=== PATIENT | male | born 1965 | race Caucasian/White ===

== ENCOUNTER 2017-04-20 14:56 | Emergency (ER) | payer MEDICAID ==
[~2017-04-20] VITALS: Ht 170.2 cm; Wt 99.8 kg
[2017-04-20] MEDS ORDERED: LEVO175T7 PO (15:17)
[2017-04-20] MEDS ORDERED: LEVO150T8 PO (15:17)
[2017-04-20] MEDS ORDERED: HUM10VIA5 SQ ×2 (15:17)
[2017-04-20] MEDS ORDERED: GABA-532 PO (15:17)
--- NOTE | 2017-04-20 15:20 | NUR ---
PT PROVIDED SNACK PER MD ORDER, SANDWICH AND OJ GIVEN.
[2017-04-20 15:29] LABS: BASOPHILS # (AUTO) 0.1 K/uL (0.0-8.0); BASOPHILS % (AUTO) 0.6 % (0.0-2.0); EOSINOPHILS # (AUTO) 0.1 K/uL (0.0-0.7); HEMATOCRIT 41.3 % (40-50); HEMOGLOBIN 13.6 G/DL (14.0-18.0); LYMPHOCYTES % (AUTO) 7.3 % (20.5-51.5); MEAN CORPUSCULAR HEMOGLOBIN 27.8 UUG (27.0-31.0); MEAN CORPUSCULAR HGB CONC 33 g/dL (32.0-37.0); MEAN CORPUSCULAR VOLUME 84.8 FL (82.0-92.0); MONOCYTES # (AUTO) 0.7 K/UL (0.1-1.30); NEUTROPHILS # (AUTO) 11.9 K/UL (1.8-8.9); NEUTROPHILS % (AUTO) 86.1 % (38.5-71.5); PLATELET COUNT (AUTO) 283 K/UL (150-450); RED BLOOD CELL COUNT(AUTO) 4.88 MIL/UL (4.7-6.1); WHITE BLOOD COUNT (AUTO) 13.8 K/UL (4.0-11.2)
[2017-04-20 15:35] LABS: CREATININE 0.9 mg/dL (0.6-1.3); POTASSIUM 4.3 mmol/L (3.5-5.1)
[2017-04-20 15:40] LABS: BILIRUBIN,DIRECT 0.2 mg/dL (0.0-0.2); BILIRUBIN,TOTAL 0.7 mg/dL (0.2-1.0); TOTAL PROTEIN, SERUM 8.4 g/dL (6.4-8.2)
[2017-04-20 15:52] LABS: BAND % (MANUAL) 12 % (0-10); EOSINOPHILS % (MANUAL) 2 % (0-8); LYMPHOCYTES % (MANUAL) 6 % (20-40); MONOCYTES % (MANUAL) 5 % (2-10); NEUTROPHILS % (MANUAL) 75 % (42-75)
[2017-04-20 15:59] LABS: *BLOOD, URINE NEGATIVE (NEGATIVE); *CLARITY,URINE CLEAR (CLEAR); *COLOR,URINE YELLOW (YELLOW); *KETONES,URINE 3+ (NEGATIVE); *PROTEIN,URINE TRACE (NEGATIVE); LEUKOCYTE ESTERASE ,URINE NEGATIVE (NEGATIVE); NITRITE, URINE NEGATIVE (NEGATIVE); UGLUCOSE NEGATIVE (NEGATIVE)
[2017-04-20 16:09] LABS: *BILIRUBIN,URIN NEGATIVE (NEGATIVE)
[2017-04-20 16:10] LABS: MUCUS,URINE MANY /LPF (0-FEW); SQUAMOUS EPITHELIAL CELL,UR FEW /HPF (NONE SEEN); WBC,URINE 0-3 /HPF (0-3)
--- NOTE | 2017-04-20 17:30 | NUR ---
Unable to dischagre pt due to computer problem and sepsis assessment, even though d/c'd sepsis work up.
[2017-04-20 17:34] VITALS: BP 131/64
--- NOTE | 2017-04-20 17:35 | NUR ---
Patient discharged to home in stable conditon. Written and verbal after care instructions given. Patient verbalizes understanding of instructions. Pt left ER with steady gait.
== END 2017-04-20 17:37 | disposition home or self-care (01) ==
LOC: ER 14:56
DX: E11.649 Type 2 diabetes mellitus with hypoglycemia without coma (principal); Z79.4 Long term (current) use of insulin; E03.9 Hypothyroidism, unspecified; Z88.0 Allergy status to penicillin
CPT/HCPCS: 36415; 70030-TC; 71010; 85025; 85730; 87040; 87086; 93005; A4663

== ENCOUNTER 2017-05-14 14:55 | Emergency (ER) | payer MEDICAID ==
[~2017-05-14 14:55] MED LIST: GABA-532 PO; HUM10VIA5 SQ; LEVO150T8 PO; LEVO175T7 PO
--- NOTE | 2017-05-14 14:59 | NUR ---
PT DECIDED TO GO HOME. PT LWBT.
== END 2017-05-14 15:02 | disposition left against medical advice (07) ==
LOC: ER 14:55
DX: Z53.21 Procedure and treatment not carried out due to patient leaving prior to being seen by health care provider (principal)